=== PATIENT | male | born 1990 | race African-American/Black ===

== ENCOUNTER 2020-06-27 10:43 | Emergency (ER) | payer OTHER ==
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
[2020-06-27 11:42] LABS: INTERNATIONAL RATION (INR) 0.99; PROTHROMBIN TIME 13.3 SEC (11.4-15.4)
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
[2020-06-27 11:58] LABS: ALBUMIN 4.4 g/dL (3.5-5.0); ALKALINE PHOSPHATASE 44 U/L (38-126); ANION GAP 9 (5-19); ASPARTATE AMINO TRANSFERASE 28 U/L (17-59); BILIRUBIN,DIRECT 0.3 mg/dL (0.0-0.4); BILIRUBIN,TOTAL 0.6 mg/dL (0.2-1.3); BLOOD UREA NITROGEN 9 mg/dL (7-20); CALCIUM 8.9 mg/dL (8.4-10.2); CARBON DIOXIDE 26 mmol/L (22-30); CHLORIDE 108 mmol/L (98-107); GLUCOSE 92 mg/dL (75-110); POTASSIUM 3.7 mmol/L (3.6-5.0); TOTAL PROTEIN 7.4 g/dL (6.3-8.2)
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
[2020-06-27 12:12] LABS: ABSOLUTE BASOPHILS # (AUTO) 0.1 10^3/uL (0.0-0.2); ABSOLUTE EOSINOPHILS # (AUTO) 0.1 10^3/uL (0.0-0.6); ABSOLUTE LYMPHOCYTES (AUTO) 1.5 10^3/uL (0.5-4.7); ABSOLUTE MONOCYTES (AUTO) 0.6 10^3/uL (0.1-1.4); ABSOLUTE NEUT (AUTO) 2.2 10^3/uL (1.7-8.2); BASOPHILS % (AUTO) 1.4 % (0-2); EOSINOPHILS % (AUTO) 1.6 % (0-6); HEMATOCRIT 50.2 % (37.9-51.0); LYMPHOCYTES % (AUTO) 34.1 % (13-45); MEAN CORPUSCULAR HEMOGLOBIN 32.1 pg (27.0-33.4); MEAN CORPUSCULAR HGB CONC 35.8 g/dL (32.0-36.0); MEAN CORPUSCULAR VOLUME 90 fl (80-97); MONOCYTES % (AUTO) 13.1 % (3-13); PLATELET COUNT 197 10^3/uL (150-450); RED CELL DISTRIBUTION WIDTH 15.2 % (11.5-14.0); SEGMENTED NEUTROPHILS % (AUTO) 49.8 % (42-78); TOTAL CELLS COUNTED % (AUTO) 100 %; WHITE BLOOD COUNT 4.5 10^3/uL (4.0-10.5)
[2020-06-27 12:19] LABS: ERYTHROCYTE SEDIMENTATION RATE 3 mm/hr (0-15)
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
[2020-06-27 13:24] VITALS: BP 110/75
--- NOTE | 2020-06-28 09:32 | EKG REPORT ---
SEVERITY:- ABNORMAL ECG - SINUS RHYTHM PHUC -consider pericarditis, early repolarization : Confirmed by: Cabrera Salamanca MD 28-Jun-2020 09:31:55
== END 2020-06-27 13:29 | disposition home or self-care (01) ==
LOC: ER 10:43
DX: S12.9XXA Fracture of neck, unspecified, initial encounter (principal); S00.81XA Abrasion of other part of head, initial encounter; R51 Headache; M25.519 Pain in unspecified shoulder; V49.9XXA Car occupant (driver) (passenger) injured in unspecified traffic accident, initial encounter; F17.200 Nicotine dependence, unspecified, uncomplicated; J45.909 Unspecified asthma, uncomplicated; Z91.013 Allergy to seafood
CPT/HCPCS: 36415; 70450; 70486; 71250; 72125; 80053; 85025; 85610; 85652; 93005; 93010; 99285